=== PATIENT | male | born 1930 | race Native Hawaiian/Other Pacific Islander ===

== ENCOUNTER → 2016-11-02 08:33 | Outpatient (CLI) | payer OTHER ==
[~2016-11-02 08:33] MED LIST: ALBUTEROL0.083 % IN; AMLO5TAB PO; ASA LO-DOSE81 MG PO; ATROVENT NAS0.03 %; BYSTOLIC10 MG PO; CETI10TA PO; DOCU100C10 PO; DYMISTA1 SPR; FLUTMIS14 INH; FURO40TA93 PO; MULT VITAMI2 PO; POT CHLORIDE10 ME1 OR; TAMS0.4C PO; TORSEMIDE20 MG OR
== END | disposition expired ==
LOC: AMB 08:33
DX: R40.20 Unspecified coma (principal)